=== PATIENT | male | born 1995 | race Caucasian/White ===

== ENCOUNTER 2018-08-29 13:27 | Emergency (ER) | payer MEDICAID ==
[2018-08-29] MEDS: Ketorolac 60 MG/2 ML SDV IM ONE (14:36)
[2018-08-29] MEDS: Cyclobenzaprine 10 MG Tab PO ONE (14:36)
--- NOTE | 2018-08-29 14:37 | EDM.PDOC ---
<AllaYara - Last Filed: 08/29/18 14:32> ED HPI GENERAL MEDICAL PROBLEM - General Chief Complaint: Back Pain or Injury Stated Complaint: BACK PAIN Time Seen by Provider: 08/29/18 14:19 - History of Present Illness INITIAL COMMENTS - FREE TEXT/NARRATIVE: Gilberto Fraga is a 23 year old male who reports to the ED with concerns of low back pain. He notes that the pain started about 2 weeks ago when he started work at [employer]. 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 He has also noted swelling in his hands and feet, which started 2 days ago. He notes his pain is worse when his bladder is full. He denies incontinence, dysuria, frequency and urgency. Lower Back Pain Score (Numeric/FACES): 8 - Related Data Allergies Allergy/AdvReac Type Severity Reaction Status Date / Time Penicillins Allergy Hives Verified 08/29/18 13:44 Home Meds: Home Meds Cyclobenzaprine [Flexeril] 10 mg PO TID PRN #30 tablet 08/29/18 [Rx] Gabapentin [Neurontin] 300 mg PO BID 08/29/18 [History] QUEtiapine [SEROquel] 100 mg PO DAILY 08/29/18 [History] Past Medical History HEENT History: Reports: None Gastrointestinal History: Reports: Chronic Diarrhea Musculoskeletal History: Reports: Back Pain, Chronic, Fracture Neurological History: Reports: Migraines Psychiatric History: Reports: Anxiety, Bipolar, Depression, Psych Hospitalization(s), Suicide Attempt Endocrine/Metabolic History: Reports: Obesity/BMI 30+ - Infectious Disease History Infectious Disease History: Reports: Chicken Pox - Past Surgical History Head Surgeries/Procedures: Reports: None HEENT Surgical History: Reports: Adenoidectomy, Tonsillectomy, Other (See Below) Other HEENT Surgeries/Procedures: dental surgery GI Surgical History: Reports: Appendectomy Neurological Surgical History: Reports: None Musculoskeletal Surgical History: Reports: None Dermatological Surgical History: Reports: None Social & Family History - Tobacco Use Smoking Status *Q: Current Every Day Smoker Years of Tobacco use: 5 Packs/Tins Daily: 0.5 - Caffeine Use Caffeine Use: Reports: Tea - Recreational Drug Use Recreational Drug Use: No ED ROS GENERAL - Review of Systems Review Of Systems: See Below Constitutional: Reports: Fatigue. Denies: Fever, Chills, Diaphoresis HEENT: Reports: No Symptoms Respiratory: Reports: Shortness of Breath. Denies: Wheezing, Cough Cardiovascular: Denies: Chest Pain, Edema, Lightheadedness GI/Abdominal: Denies: Abdominal Pain, Constipation, Diarrhea : Denies: Discharge, Dysuria, Flank Pain, Frequency, Hematuria Musculoskeletal: Reports: Back Pain Skin: Reports: No Symptoms Neurological: Reports: No Symptoms Psychiatric: Reports: No Symptoms ED EXAM,LOWER BACK PAIN/INJURY - Physical Exam Exam: See Below Text/Narrative:: MSK: Pain upon palpation of lumbar spine. Sensation intact. Normal patellar reflexes. Exam Limited By: No Limitations General Appearance: Alert, No Apparent Distress Ears: Normal External Exam Nose: Normal Inspection Throat/Mouth: Normal Inspection, Normal Lips, Normal Oropharynx Head: Atraumatic, Normocephalic Neck: Normal Inspection, Supple, Non-Tender Respiratory/Chest: No Respiratory Distress, Lungs Clear, Normal Breath Sounds Cardiovascular: Regular Rate, Rhythm, No Edema GI/Abdominal: Normal Bowel Sounds, Soft, Non-Tender Extremities: Normal Inspection, Other (Negative straight leg test) Neurological: Alert, Normal Mood/Affect Skin Exam: Warm, Intact, Normal Color Course - Vital Signs Last Recorded V/S: Last Vital Signs Temp 97.3 F 08/29/18 13:49 Pulse 90 08/29/18 13:49 Resp 16 08/29/18 13:49 BP 143/63 H 08/29/18 13:49 Pulse Ox 92 L 08/29/18 13:49 - Orders/Labs/Meds Labs: Laboratory Tests 08/29/18 Range/Units 14:25 Urine Color Yellow Urine Appearance Clear Urine pH 5.0 (4.5-8.0) Ur Specific [place] 1.015 (1.008-1.030) Urine Protein Negative (NEGATIVE) mg/dL Urine Glucose (UA) Negative (NEGATIVE) mg/dL Urine Ketones Negative (NEGATIVE) mg/dL Urine Occult Blood Negative (NEGATIVE) Urine Nitrite Negative (NEGAITVE) Urine Bilirubin Negative (NEGATIVE) Urine Urobilinogen Normal (NORMAL) mg/dL Ur Leukocyte Esterase Negative (NEGATIVE) Urine RBC 0-5 (0-5) Urine WBC 0-5 (0-5) Ur Epithelial Cells Rare Amorphous Sediment Rare Urine Bacteria Not seen Urine Mucus Rare Meds: Medications Discontinued Medications Generic Name Dose Route Start Last Admin Trade Name Freq PRN Reason Stop Dose Admin Cyclobenzaprine HCl 10 mg 08/29/18 14:30 08/29/18 14:36 Flexeril PO 08/29/18 14:31 10 mg ONETIME ONE Administration Ketorolac Tromethamine 60 mg 08/29/18 14:29 08/29/18 14:36 Toradol IM 08/29/18 14:30 60 mg ONETIME ONE Administration Departure - Departure Disposition: Home, Self-Care 01 Clinical Impression: Low back pain Qualifiers: Chronicity: acute Back pain laterality: bilateral Sciatica presence: without sciatica Qualified Code(s): M54.5 - Low back pain - Discharge Information Prescriptions: Cyclobenzaprine [Flexeril] 10 mg PO TID PRN #30 tablet PRN Reason: Pain Referrals: PCP,None [Primary Care Provider] - Forms: ED Department Discharge Additional Instructions: Use ibuprofen as needed for pain control, use muscle relaxant as needed to help with back pain, Please followup with your primary care provider in 3-5 days if not better, please call return to the emergency department with worsening of symptoms. Your medications have been faxed to [facility] <Arnoldo Stratton - Last Filed: 08/29/18 15:11> ED EXAM,LOWER BACK PAIN/INJURY - Physical Exam Text/Narrative:: Pain with palpation paraspinally no spinal tenderness Back Exam: Normal Inspection, Full Range of Motion. No: CVA Tenderness (R), CVA Tenderness (L) Neurological: No: Straight Leg Raise (L), Straight Leg Raise (R), Saddle Anesthesia DTR - Lower Extremities: 2+: Knee (R), Knee (L) Departure - Departure Time of Disposition: 15:11 Condition: Good - Assessment/Plan Plan: Assessment Acuity = acute Site and laterality = mid low back pain Etiology = secondary lifting injury Manifestations = none Location of injury = Home Lab values = urinalysis unremarkable Plan He had good relief Toradol injection combination Flexeril, prescription for Flexeril 10 mg by mouth 3 times a day when necessary total #30 faxed to [facility] follow-up primary care 3-5 days if not better. Arnoldo Goyal MD was personally available for consultation in the ED. I have reviewed the chart and agree with the documentation as recorded by the PA Student, including the assessment, treatment plan and disposition. Arnoldo Goyal MD personally saw and examined the patient. I have reviewed and agree with the PA Student's findings. This note was dictated using [employer] voice recognition software please call with any questions on syntax or grammar.
== END 2018-08-29 15:15 | disposition home or self-care (01) ==
LOC: JP.ED 13:27
DX: M54.5 Low back pain (principal); F41.9 Anxiety disorder, unspecified; F32.9 Major depressive disorder, single episode, unspecified; Z88.0 Allergy status to penicillin; Z98.890 Other specified postprocedural states; X50.0XXA Overexertion from strenuous movement or load, initial encounter
CPT/HCPCS: 81001; 96372; 99283; A9270; J1885

== ENCOUNTER 2018-10-01 11:31 | Emergency (ER) | payer MEDICAID ==
[2018-10-01] MEDS ORDERED: Sodium Chloride 0.9% 10 ML Syringe FLUSH PRN (12:10)
[2018-10-01] MEDS ORDERED: Ondansetron 4 MG/2 ML SDV IVPUSH ONE (12:11)
--- NOTE | 2018-10-01 12:13 | EDM.PDOC ---
ED HPI GENERAL MEDICAL PROBLEM - General Chief Complaint: Fever Stated Complaint: FEVER, VOMITING Time Seen by Provider: 10/01/18 12:04 Source of Information: Reports: Patient, Family, RN Notes Reviewed History Limitations: Reports: No Limitations - History of Present Illness INITIAL COMMENTS - FREE TEXT/NARRATIVE: 23-year-old gentleman presents emergency department day complaint of nausea vomiting fever and shortness of breath, he states he's been ill for about 3 days does have a cough produces clear sputum his emesis has been black in color no flu shot this year abdominal Pain Score (Numeric/FACES): 5 - Related Data Allergies Allergy/AdvReac Type Severity Reaction Status Date / Time Penicillins Allergy Hives Verified 10/01/18 11:48 Home Meds: Home Meds Gabapentin [Neurontin] 300 mg PO TID 08/29/18 [History] QUEtiapine [SEROquel] 100 mg PO BEDTIME 08/29/18 [History] Azithromycin [Zithromax] 250 mg PO DAILY #6 tab 10/01/18 [Rx] Ondansetron [Zofran ODT] 4 mg PO Q6H PRN #5 tab.dis 10/01/18 [Rx] Past Medical History Gastrointestinal History: Reports: Chronic Diarrhea Musculoskeletal History: Reports: Back Pain, Chronic, Fracture Neurological History: Reports: Migraines Psychiatric History: Reports: Anxiety, Bipolar, Depression, Psych Hospitalization(s), Suicide Attempt Endocrine/Metabolic History: Reports: Obesity/BMI 30+ - Infectious Disease History Infectious Disease History: Reports: Chicken Pox - Past Surgical History Head Surgeries/Procedures: Reports: None HEENT Surgical History: Reports: Adenoidectomy, Tonsillectomy, Other (See Below) Other HEENT Surgeries/Procedures: dental surgery GI Surgical History: Reports: Appendectomy Neurological Surgical History: Reports: None Musculoskeletal Surgical History: Reports: None Dermatological Surgical History: Reports: None Social & Family History - Tobacco Use Smoking Status *Q: Current Every Day Smoker Years of Tobacco use: 5 Packs/Tins Daily: 0.5 - Caffeine Use Caffeine Use: Reports: Soda - Recreational Drug Use Recreational Drug Use: No ED ROS GENERAL - Review of Systems Review Of Systems: See Below Constitutional: Reports: Fever, Chills HEENT: Reports: No Symptoms Respiratory: Reports: Shortness of Breath, Cough, Sputum Cardiovascular: Reports: Chest Pain (With coughing) GI/Abdominal: Reports: Diarrhea, Nausea, Vomiting. Denies: Abdominal Pain : Reports: No Symptoms Musculoskeletal: Reports: No Symptoms Skin: Reports: No Symptoms Neurological: Reports: No Symptoms ED EXAM, GI/ABD - Physical Exam Exam: See Below Exam Limited By: No Limitations General Appearance: Alert, WD/WN, No Apparent Distress Throat/Mouth: Normal Inspection, Normal Lips, Normal Teeth, Normal Gums, Normal Oropharynx, Normal Voice, No Airway Compromise Head: Atraumatic, Normocephalic Neck: Normal Inspection, Supple, Non-Tender, Full Range of Motion Respiratory/Chest: No Respiratory Distress, Lungs Clear, Normal Breath Sounds, No Accessory Muscle Use Cardiovascular: Regular Rate, Rhythm, Diastolic Murmur GI/Abdominal Exam: Soft, Non-Tender Back Exam: Normal Inspection, Full Range of Motion. No: CVA Tenderness (R), CVA Tenderness (L) Extremities: Normal Range of Motion, Non-Tender, No Pedal Edema Course - Vital Signs Last Recorded V/S: Last Vital Signs Temp 96.3 F 10/01/18 11:52 Pulse 107 H 10/01/18 11:52 Resp 18 10/01/18 11:52 BP 137/80 10/01/18 11:52 Pulse Ox 94 L 10/01/18 11:52 - Orders/Labs/Meds Orders: Active Orders 24 hr Category Date Time Status Peripheral IV Care [RC] . DIRECTED Care 10/01/18 12:10 Active Lactated Ringers [Ringers, Lactated] 1,000 ml Med 10/01/18 12:15 Active IV ASDIRECTED Sodium Chloride 0.9% [Saline Flush] Med 10/01/18 12:10 Active 10 ml FLUSH ASDIRECTED PRN Peripheral IV Insertion Adult [OM.PC] Urgent Oth 10/01/18 12:10 Ordered Medication Orders Lactated Ringer's (Ringers, Lactated) 1,000 mls @ 999 mls/hr IV ASDIRECTED SERINA Last Admin: 10/01/18 12:50 Dose: 999 mls/hr Sodium Chloride (Saline Flush) 10 ml FLUSH ASDIRECTED PRN PRN Reason: Keep Vein Open Last Admin: 10/01/18 12:50 Dose: 10 ml Labs: Laboratory Tests 10/01/18 10/01/18 10/01/18 Range/Units 12:21 12:21 12:21 WBC 9.9 (4.5-11.0) K/uL RBC 5.20 (4.30-5.90) M/uL Hgb 15.3 H (12.0-15.0) g/dL Hct 46.4 (40.0-54.0) % MCV 89 (80-98) fL MCH 29 (27-31) pg MCHC 33 (32-36) % Plt Count 243 (150-400) K/uL Neut % (Auto) 69 H (36-66) % Lymph % (Auto) 17 L (24-44) % [place] % (Auto) 12 H (2-6) % Eos % (Auto) 2 (2-4) % Baso % (Auto) 1 (0-1) % Sodium 135 L (140-148) mmol/L Potassium 3.8 (3.6-5.2) mmol/L Chloride 98 L (100-108) mmol/L Carbon Dioxide 24 (21-32) mmol/L Anion Gap 16.8 H (5.0-14.0) mmol/L BUN 16 (7-18) mg/dL Creatinine 1.1 (0.8-1.3) mg/dL Est Cr Clr Drug Dosing 116.60 mL/min Estimated GFR (MDRD) > 60 (>60) Glucose 110 H (74-106) mg/dL Lactic Acid 1.0 (0.4-2.0) mmol/L Calcium 9.3 (8.5-10.1) mg/dL Total Bilirubin 0.4 (0.2-1.0) mg/dL AST 18 (15-37) U/L ALT 19 (12-78) U/L Alkaline Phosphatase 77 (46-116) U/L Total Protein 7.7 (6.4-8.2) g/dL Albumin 3.5 (3.4-5.0) g/dL Globulin 4.2 H (2.3-3.5) g/dL Albumin/Globulin Ratio 0.8 L (1.2-2.2) Urine Color Urine Appearance Urine pH (4.5-8.0) Ur Specific [place] (1.008-1.030) Urine Protein (NEGATIVE) mg/dL Urine Glucose (UA) (NEGATIVE) mg/dL Urine Ketones (NEGATIVE) mg/dL Urine Occult Blood (NEGATIVE) Urine Nitrite (NEGAITVE) Urine Bilirubin (NEGATIVE) Urine Urobilinogen (NORMAL) mg/dL Ur Leukocyte Esterase (NEGATIVE) Urine RBC (0-5) Urine WBC (0-5) Ur Epithelial Cells Amorphous Sediment Urine Bacteria Urine Mucus 10/01/18 Range/Units 13:15 WBC (4.5-11.0) K/uL RBC (4.30-5.90) M/uL Hgb (12.0-15.0) g/dL Hct (40.0-54.0) % MCV (80-98) fL MCH (27-31) pg MCHC (32-36) % Plt Count (150-400) K/uL Neut % (Auto) (36-66) % Lymph % (Auto) (24-44) % [place] % (Auto) (2-6) % Eos % (Auto) (2-4) % Baso % (Auto) (0-1) % Sodium (140-148) mmol/L Potassium (3.6-5.2) mmol/L Chloride (100-108) mmol/L Carbon Dioxide (21-32) mmol/L Anion Gap (5.0-14.0) mmol/L BUN (7-18) mg/dL Creatinine (0.8-1.3) mg/dL Est Cr Clr Drug Dosing mL/min Estimated GFR (MDRD) (>60) Glucose (74-106) mg/dL Lactic Acid (0.4-2.0) mmol/L Calcium (8.5-10.1) mg/dL Total Bilirubin (0.2-1.0) mg/dL AST (15-37) U/L ALT (12-78) U/L Alkaline Phosphatase (46-116) U/L Total Protein (6.4-8.2) g/dL Albumin (3.4-5.0) g/dL Globulin (2.3-3.5) g/dL Albumin/Globulin Ratio (1.2-2.2) Urine Color Yellow Urine Appearance Clear Urine pH 6.0 (4.5-8.0) Ur Specific [place] 1.010 (1.008-1.030) Urine Protein Trace (NEGATIVE) mg/dL Urine Glucose (UA) Negative (NEGATIVE) mg/dL Urine Ketones Negative (NEGATIVE) mg/dL Urine Occult Blood Negative (NEGATIVE) Urine Nitrite Negative (NEGAITVE) Urine Bilirubin Negative (NEGATIVE) Urine Urobilinogen 1 (NORMAL) mg/dL Ur Leukocyte Esterase Negative (NEGATIVE) Urine RBC Not seen (0-5) Urine WBC Not seen (0-5) Ur Epithelial Cells Rare Amorphous Sediment Rare Urine Bacteria Rare Urine Mucus Rare Meds: Medications Generic Name Dose Route Start Last Admin Trade Name Freq PRN Reason Stop Dose Admin Lactated Ringer's 1,000 mls @ 999 mls/hr 10/01/18 12:15 10/01/18 12:50 Ringers, Lactated IV 999 mls/hr ASDIRECTED SERINA Administration Sodium Chloride 10 ml 10/01/18 12:10 10/01/18 12:50 Saline Flush FLUSH 10 ml ASDIRECTED PRN Administration Keep Vein Open Discontinued Medications Generic Name Dose Route Start Last Admin Trade Name Freq PRN Reason Stop Dose Admin Ondansetron HCl 4 mg 10/01/18 12:11 10/01/18 12:50 Zofran IVPUSH 10/01/18 12:12 4 mg ONETIME ONE Administration Departure - Departure Time of Disposition: 14:07 Disposition: Home, Self-Care 01 Condition: Fair Clinical Impression: Pneumonia Qualifiers: Pneumonia type: due to unspecified organism Laterality: right Lung location: lower lobe of lung Qualified Code(s): J18.1 - Lobar pneumonia, unspecified organism - Discharge Information Prescriptions: Azithromycin [Zithromax] 250 mg PO DAILY #6 tab Ondansetron [Zofran ODT] 4 mg PO Q6H PRN #5 tab.dis PRN Reason: Nausea Referrals: PCP,None [Primary Care Provider] - Forms: ED Department Discharge Additional Instructions: Take full course of antibiotics, use Zofran as needed for nausea and vomiting symptoms, Please followup with your primary care provider in 5-7 days if not better, please call return to the emergency department with worsening of symptoms. Your medications have been faxed to [facility] - My Orders Last 24 Hours: My Active Orders 10/01/18 12:10 Peripheral IV Care [RC] . DIRECTED Sodium Chloride 0.9% [Saline Flush] 10 ml FLUSH ASDIRECTED PRN Peripheral IV Insertion Adult [OM.PC] Urgent 10/01/18 12:15 Lactated Ringers [Ringers, Lactated] 1,000 ml IV ASDIRECTED - Assessment/Plan Last 24 Hours: My Active Orders 10/01/18 12:10 Peripheral IV Care [RC] . DIRECTED Sodium Chloride 0.9% [Saline Flush] 10 ml FLUSH ASDIRECTED PRN Peripheral IV Insertion Adult [OM.PC] Urgent 10/01/18 12:15 Lactated Ringers [Ringers, Lactated] 1,000 ml IV ASDIRECTED Plan: Assessment Acuity = acute Site and laterality = community acquired pneumonia right lower lobe Etiology = probable bacterial cause Manifestations = cough, fever, shortness of breath, nausea, vomiting Location of injury = Home Lab values = CBC, CMP unremarkable lactic acid within normal limits urinalysis unremarkable chest x-ray does show right lower lobe pneumonia Plan [ I did review lab work chest x-ray results with him he is placed on azithromycin 5 day course 5 tablets of Zofran 1 tab by mouth every 6 hours when necessary medications faxed to [facility] This note was dictated using [employer] voice recognition software please call with any questions on syntax or grammar.
[2018-10-01] MEDS ORDERED: Lactated Ringers 1,000 ML IV SCH (12:15)
--- NOTE | 2018-10-01 13:21 | CRLCR ---
Shortness of breath. Technique two-view chest x-ray Findings: Normal cardiac mediastinal silhouette. Right lower lobe airspace opacities. Left lung is clear. No pneumothorax. No effusion. IMPRESSION: 1. Right lower lobe pneumonia. Dictated by Brissa Wayne MD @ Oct 01 2018 1:18PM Signed by Dr. Brissa Wayne @ Oct 01 2018 1:19PM
== END 2018-10-01 14:18 | disposition home or self-care (01) ==
LOC: JP.ED 11:31
DX: J18.1 Lobar pneumonia, unspecified organism (principal); F17.210 Nicotine dependence, cigarettes, uncomplicated; F31.9 Bipolar disorder, unspecified; F41.9 Anxiety disorder, unspecified; Z79.899 Other long term (current) drug therapy; Z88.0 Allergy status to penicillin
CPT/HCPCS: 36415; 71046; 80053; 81001; 83605; 85025; 87804; 96361; 96374; 99283; J2405; J7120

== ENCOUNTER 2018-11-04 21:14 | Emergency (ER) | payer MEDICAID ==
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
== END 2018-11-04 23:59 | disposition home or self-care (01) ==
LOC: JP.ED 21:14
DX: S06.0X9A Concussion with loss of consciousness of unspecified duration, initial encounter (principal); S01.01XA Laceration without foreign body of scalp, initial encounter; F17.210 Nicotine dependence, cigarettes, uncomplicated; Z88.0 Allergy status to penicillin; W22.8XXA Striking against or struck by other objects, initial encounter
CPT/HCPCS: 12001; 36415; 70450; 80053; 85025; 99285; G0480

== ENCOUNTER 2019-12-14 03:56 | Emergency (ER) | payer MEDICAID ==
[2019-12-14] MEDS ORDERED: Bupivacaine 0.5%/EPINEPHrine 1:200,000 1.8 ML Cartridge INJECT ONE (04:42)
--- NOTE | 2019-12-14 04:48 | EDM.PDOC ---
ED HPI GENERAL MEDICAL PROBLEM - General Chief Complaint: ENT Problem Stated Complaint: TOOTHACHE Time Seen by Provider: 12/14/19 04:35 Source of Information: Reports: Patient, Old Records, RN History Limitations: Reports: No Limitations - History of Present Illness INITIAL COMMENTS - FREE TEXT/NARRATIVE: 24 yo male broke off a tooth a few weeks ago and has had progressive pain for the past couple of days. Saw a local dentist and was placed on clindamycin. Was not given anything for pain. Not able to tolerate the pain tonight. No fever. Is waiting to get into an oral surgeon for definitive care. Has not been to the clinic either for this. Onset: Gradual Onset Date: 12/11/19 Duration: Day(s):, Getting Worse Location: Reports: Face (L mandible) Quality: Reports: Ache Severity: Severe Improves with: Reports: None Worsens with: Reports: Other (? time) Associated Symptoms: Reports: No Other Symptoms Treatments PRODUCTION CONSULTANT: Reports: Other (see below) (Clindamycin) Left Lower Jaw Pain Score (Numeric/FACES): 10 - Related Data Allergies Allergy/AdvReac Type Severity Reaction Status Date / Time Penicillins Allergy Hives Verified 12/14/19 04:08 Home Meds: Home Meds Gabapentin [Neurontin] 800 mg PO QID 08/29/18 [History] Past Medical History HEENT History: Reports: None Gastrointestinal History: Reports: Chronic Diarrhea Musculoskeletal History: Reports: Back Pain, Chronic, Fracture Neurological History: Reports: Migraines Psychiatric History: Reports: Anxiety, Bipolar, Depression, Psych Hospitalization(s), Suicide Attempt Endocrine/Metabolic History: Reports: Obesity/BMI 30+ - Infectious Disease History Infectious Disease History: Reports: Chicken Pox - Past Surgical History Head Surgeries/Procedures: Reports: None HEENT Surgical History: Reports: Adenoidectomy, Myringotomy w Tube(s), Tonsillectomy, Other (See Below) Other HEENT Surgeries/Procedures: dental surgery GI Surgical History: Reports: Appendectomy Dermatological Surgical History: Reports: None Social & Family History - Tobacco Use Smoking Status *Q: Current Every Day Smoker Years of Tobacco use: 12 Packs/Tins Daily: 0.5 - Caffeine Use Caffeine Use: Reports: Coffee, Energy Drinks, Soda, Tea - Recreational Drug Use Recreational Drug Use: Yes Recreational Drug Type: Reports: Marijuana/Hashish Recreational Drug Use Frequency: Weekly ED ROS ENT - Review of Systems Review Of Systems: See Below Constitutional: Reports: No Symptoms HEENT: Reports: Dental Pain Respiratory: Reports: No Symptoms Cardiovascular: Reports: No Symptoms Skin: Reports: No Symptoms Neurological: Reports: No Symptoms ED EXAM, ENT - Physical Exam Exam: See Below Exam Limited By: No Limitations General Appearance: Alert, WD/WN, No Apparent Distress Eye Exam: Bilateral Eye: Normal Inspection Ears: Normal External Exam, Normal Canal, Hearing Grossly Normal Nose: Normal Inspection, No Blood Mouth/Throat: Normal Lips, Normal Oropharynx, Dental Pain (L mandibular molar has the outer 1/3 broken off due to decay. This tooth is painful. No facial swel ling. ). No: Normal Teeth Head: Atraumatic, Normocephalic Neck: Normal Inspection. No: Lymphadenopathy (R), Lymphadenopathy (L) Respiratory/Chest: No Respiratory Distress, No Accessory Muscle Use Neurological: Alert, Oriented, CN II-XII Intact, Normal Cognition, No Motor/Sensory Deficits Psychiatric: Normal Affect, Normal Mood Skin: Warm, Dry, Intact, Normal Color, No Rash ED ENT PROCEDURES - Additional/Other Procedure(s) Other (Free Text) Procedure(s): A left submandibular nerve block was performed with 1.8 ml of 0.5% bupivacaine with epi. Good pain relief resulted. Course - Vital Signs Last Recorded V/S: Last Vital Signs Temp 36.6 C 12/14/19 04:09 Pulse 95 12/14/19 04:09 Resp 16 12/14/19 04:09 BP 134/87 12/14/19 04:09 Pulse Ox 98 12/14/19 04:09 - Orders/Labs/Meds Orders: Active Orders 24 hr Category Date Time Status Bupivacaine 0.5%/EPINEPHrine [Marcaine 0.5%/EPINEPHrine Med 12/14/19 04:42 Once 1:200,000] 1.8 ml INJECT ONETIME ONE Departure - Departure Time of Disposition: 04:54 Disposition: Home, Self-Care 01 Condition: Fair Clinical Impression: Pain, dental - Discharge Information *PRESCRIPTION DRUG MONITORING PROGRAM REVIEWED*: No *COPY OF PRESCRIPTION DRUG MONITORING REPORT IN PATIENT FRACISCO: No Referrals: PCP,None [Primary Care Provider] - Additional Instructions: Take ibuprofen 600 mg every 6 hrs with food. Add acetaminophen up to 1000 mg every 6 hrs for added relief. Try Ambesol or other topical agents as well if needed. See your primary care provider later today to discuss other pain options. See an oral surgeon for removal of the affected tooth carri. Sepsis Event Note (ED) - Evaluation Sepsis Screening Result: No Definite Risk - Focused Exam Vital Signs: Vital Signs Temp Pulse Resp BP Pulse Ox 12/14/19 04:09 36.6 C 95 16 134/87 98 - My Orders Last 24 Hours: My Active Orders 12/14/19 04:42 Bupivacaine 0.5%/EPINEPHrine [Marcaine 0.5%/EPINEPHrine 1:200,000] 1.8 ml INJECT ONETIME ONE - Assessment/Plan Last 24 Hours: My Active Orders 12/14/19 04:42 Bupivacaine 0.5%/EPINEPHrine [Marcaine 0.5%/EPINEPHrine 1:200,000] 1.8 ml INJECT ONETIME ONE
== END 2019-12-14 04:58 | disposition home or self-care (01) ==
LOC: JP.ED 03:56
DX: K02.9 Dental caries, unspecified (principal); E66.9 Obesity, unspecified; F17.210 Nicotine dependence, cigarettes, uncomplicated; Z68.32 Body mass index [BMI] 32.0-32.9, adult; Z88.0 Allergy status to penicillin; Z79.899 Other long term (current) drug therapy
CPT/HCPCS: 64400; 99282; J3490

== ENCOUNTER 2022-06-03 21:25 | Emergency (ER) | payer MEDICAID | END 2022-06-03 22:13 | disposition home or self-care (01) | LOC: JP.ED 21:25 | DX: H66.003 Acute suppurative otitis media without spontaneous rupture of ear drum, bilateral (principal); H69.83 Other specified disorders of Eustachian tube, bilateral; J06.9 Acute upper respiratory infection, unspecified; E66.9 Obesity, unspecified; Z68.37 Body mass index [BMI] 37.0-37.9, adult; Z88.0 Allergy status to penicillin | CPT/HCPCS: 99282 ==

== ENCOUNTER 2022-09-15 19:31 | Emergency (ER) | payer MEDICAID ==
[2022-09-15 20:28] LABS: CORONAVIRUS COVID-19 NAA POSITIVE (NEGATIVE)
[2022-09-15 20:40] LABS: ESTIMATED GFR 96 mL/min (>60)
== END 2022-09-15 22:00 | disposition home or self-care (01) ==
LOC: JP.ED 19:31
DX: U07.1 COVID-19 (principal); E66.9 Obesity, unspecified; Z68.36 Body mass index [BMI] 36.0-36.9, adult; Z88.0 Allergy status to penicillin; Z86.16 Personal history of COVID-19; Z72.0 Tobacco use
CPT/HCPCS: 0241U; 36415; 71045; 80053; 85025; 86140; 99284

== ENCOUNTER 2022-11-19 09:08 | Emergency (ER) | payer OTHER, MEDICAID ==
[2022-11-19] MEDS ORDERED: Acetaminophen 500 MG Tab PO ONE (09:30)
[2022-11-19] MEDS ORDERED: Ibuprofen 400 MG Tab PO ONE (09:30)
[2022-11-19] MEDS ORDERED: Bacitracin Oint 1 GM U/D Packet TOP ONE (09:38)
== END 2022-11-19 10:05 | disposition home or self-care (01) ==
LOC: JP.ED 09:08
DX: S80.12XA Contusion of left lower leg, initial encounter (principal); S90.32XA Contusion of left foot, initial encounter; E66.9 Obesity, unspecified; Z68.35 Body mass index [BMI] 35.0-35.9, adult; Z72.0 Tobacco use; Z88.0 Allergy status to penicillin; W20.8XXA Other cause of strike by thrown, projected or falling object, initial encounter
CPT/HCPCS: 73610-LT; 73630-LT; 99283; A9270-GY